=== PATIENT | female | born 1965 | race Caucasian/White ===

== ENCOUNTER 2022-04-24 10:15 | Outpatient (CLI) | payer OTHER, SELFPAY ==
--- NOTE | 2022-04-24 | BRBX_PTH ---
PATIENT: DEB GUILLEN LOC: [facility] U#:[id number] AGE/SX: 57/F ROOM: RE04/24/[address]: Dr. Nitin Alicea MD : 1965 BED: DIS: 04/24/2022 SPEC #: [id number] RECD: 04/24/22 12:41 STATUS: DESTIN [place] #: [id number] MARIA ANTONIA: 04/24/22 00:[address]: Nitin Alicea DEPT: SURGICAL PATHOLOGY RECD BY: Davin Martin ENTERED: 04/24/22 12:42 SP TYPE: BREAST BX OTHR DR: REECE John Tissues: Right breast, NOS Procedures: Surgery Specimen Level IV HEADER OPERATION: Right breast biopsy PRE-OP DIAGNOSIS: Right breast mass TISSUE SUBMITTED: Right breast tissue FIXATION TIME: 11 hours MICROSCOPIC DIAGNOSIS Right breast mass, core biopsy: Invasive lobular carcinoma, pleomorphic variant, nuclear grade 2-3/3 (1 cm in greatest length). See comment. NEY:alvin 04/25/2022 COMMENT The tumor shows marked chronic inflammatory cell infiltrates. Immunohistochemistry ([id number]) supports the above diagnosis. ER/NY/Pdp7cga studies are being performed on sections of tumor and the results from this study will be reported separately ([id number]). Case has been reviewed in consultation with Dr. Astorga who concurs with the above diagnosis. IDC:AM MICROSCOPIC DESCRIPTION Slides are reviewed. GROSS DESCRIPTION Received in fixative is one container labeled with the patient's name and designated right breast tissue. The specimen consists of multiple elongated fragments of hoffmann-yellow fibroadipose tissue that in aggregate measure 1.5 x 0.5 x 0.1 cm. The entire specimen is submitted in one cassette. / NEY:alvin 04/24/2022 TC:0 CPT: 75152
--- NOTE | 2022-04-24 | IMM_PTH ---
PATIENT: DEB GUILLEN LOC: [facility] U#:[id number] AGE/SX: 57/F ROOM: RE04/24/[address]: Dr. Nitin Alicea MD : 1965 BED: DIS: 04/24/2022 SPEC #: [id number] RECD: 04/25/22 13:48 STATUS: DESTIN REQ #: [id number] MARIA ANTONIA: 04/24/22 00:[address]: Nitin Alicea DEPT: IMMUNOHISTOCHEMISTRY RECD BY: Elyse Shook ENTERED: 04/25/22 13:50 SP TYPE: IMMUNO OTHR DR: REECE John Tissues: Right breast, NOS Procedures: CALPONIN-1 (add) CK5-6 (add) CK8 (add) E-CAD (add) HER2 SHAKEEL (add) KI-67 (add) P53 (add) WV (add) P40 (add) ER (initial) PHYSICIAN & INSTITUTION [address] [address] SPECIMEN INFORMATION: Tissue Source: Right breast Clinical Info: Right breast mass Specimen Number: [id number] CPT code: 29094, 20654 x6, 77450 x3 METHODOLOGY: Deparaffinized sections of prefer/formalin-fixed tissue or PAP/DQ stained slides are incubated with monoclonal/polyclonal antibodies/oligonucleotide probes. Localization is made via biotin free immunoperoxidase method. Appropriate controls are performed and reacted as expected. Results on target cell population are indicated in the following table: RESULTS: ANTIBODY / CLONE RESULT E-Cad (ECH-6) negative CK8 (52vzriI48) positive Calponin-1 (UA095Q) negative CK5-6 (D5 & 1684) negative P40 (BC28) negative P53 (DO-7) negative Ki-67 (30-9) positive, moderate (~50%) MORPHOMETRIC ANALYSIS ER (clone 6F11) >95%, strong intensity WV (clone 16/1E2) >95%, strong intensity Her-2Neu (clone CB11) 0 The prognostic test for HER2 is performed on formalin-fixed paraffin embedded tissue. A 3+ (positive) staining pattern is defined as intense, homogeneous, complete, circumferential membranous staining in >10% of contiguous tumor cells. A similar weak (2+) staining pattern is interpreted as equivocal. CODY follow-up testing is recommended for all equivocal cases. Positivity/negativity for ER/WV is reported if > or < 1% of the tumor cells are immuno- reactive, respectively. The ASCO/CAP criteria is used for scoring. Reference: Journal of Clinical Oncology, 2013; 31:4420-7769 & 2010; 16:9698-7796. Duration of fixation: 11 Hrs; Sample Adequate: Yes. These assays have not been validated on decalcified tissues. Results should be interpreted with caution given the likelihood of false negativity on decalcified specimens. These tests were developed and their performance characteristics determined by [facility]. They may not have been cleared or approved by the U.S. Food and Drug Administration. The FDA has determined that such clearance or approval is not necessary. The above immunohistochemical/dualISH markers are ordered and reviewed by the Pathologist. INTERPRETATION: Right breast, core biopsy: Invasive lobular carcinoma, pleomorphic variant, nuclear grade 2-3/3. Positive for estrogen receptors (favorable prognostic indicator). Positive for progesterone receptors (favorable prognostic indicator). Negative for overexpression of LKZ9vck. SJ:alvin 04/26/2022
== END 2022-04-24 23:59 | disposition home or self-care (01) ==
LOC: LABSPEC 10:16
PROVIDERS: Referring Provider Surgery; Visit Provider Surgery
DX: N63.10 Unspecified lump in the right breast, unspecified quadrant (principal)
CPT/HCPCS: 88305; 88341; 88342

== ENCOUNTER → 2022-05-09 | Outpatient (CLI) | payer OTHER, SELFPAY ==
--- NOTE | 2022-05-09 08:41 | MRI_ITS ---
STUDY: BILATERAL BREAST MR WITHOUT AND WITH CONTRAST REASON FOR EXAM: Female, 57 years old. Newly diagnosed right breast cancer. TECHNIQUE: Multi-sequence multi-echo imaging of both breasts was performed with a dedicated breast coil. T1-weighted and T2-weighted images were performed before the administration of contrast. T1-weighted images were also performed after the intravenous administration of 22ml of Clariscan contrast. COMPARISON: Bilateral mammogram dated April 17, 2022 and right breast ultrasound dated April 17, 2022. Ultrasound-guided biopsy images dated April 24, 2022. FINDINGS: RIGHT BREAST: The breast tissue is The breasts are almost entirely fatty. with minimal background enhancement. Irregular enhancing mass measuring 3 cm x 2.2 cm x 2.4 cm at the 9:00 position of the right breast corresponding to the mammographic and ultrasonographic findings. Postbiopsy changes noted. Two fatty replaced lymph nodes measuring 8 mm and 11 mm in diameter are present in the right axilla. LEFT BREAST: The breast tissue is The breasts are almost entirely fatty. with minimal background enhancement. There are no abnormal enhancing masses or areas of non-mass enhancement in the left breast. There are no enlarged or abnormal lymph nodes. There is no abnormality in the visualized regions of the chest or liver. MRI/Breast Bilateral W/O and W IMPRESSION: Irregular enhancing mass in the right breast corresponding to the comparison ultrasonographic and mammographic findings. No other abnormality. CATEGORY: BIRADS Category 6: Known Biopsy-Proven Malignancy - Appropriate Action Should Be Taken. A letter regarding these results will be sent to the patient by the facility within 30 days. Electronically Signed: Ramon Manzo, at 7:48 EDT ,
[2022-05-09 09:20] LABS: CREATININE FINGERSTICK < 0.9 mg/dL (0.55-1.02); EGFR FINGERSTICK > 60.0000 mL/min (>60)
== END | disposition home or self-care (01) ==
LOC: MRI 08:41
PROVIDERS: Referring Provider Surgery; Visit Provider Surgery
DX: C50.919 Malignant neoplasm of unspecified site of unspecified female breast (principal)
CPT/HCPCS: 77049; A9575; A4216; C8908

== ENCOUNTER 2022-05-15 07:52 | Day surgery (SDC) | payer OTHER, SELFPAY ==
--- NOTE | 2022-05-09 10:11 | EKG12_ITS ---
Test Reason : PRE-OP Blood Pressure : / mmHG Vent. Rate : 073 BPM Atrial Rate : 073 BPM P-R Int : 144 ms QRS Dur : 072 ms QT Int : 404 ms P-R-T Axes : 045 026 024 degrees QTc Int : 445 ms Normal sinus rhythm Normal ECG Confirmed by EDWARD VILLATORO, VILMA ([id number]), movie editor ELIEZER GUTIERREZ ([id number]) on 05/10/2022 11:05:24 AM Referred By: Nitin Alicea Confirmed By:VILMA LEON MD
[2022-05-09 12:03] LABS: Anion Gap 5 (5-15); BUN 17 mg/dL (7-18); BUN/Creat Ratio 23.8 RATIO (10-20); Calcium,Total 9.9 mg/dL (8.5-10.1); Chloride 105 mmol/L (98-107); Creatinine, Serum 0.71 mg/dL (0.55-1.02); EST Glomerular Filtration Rate 89 mL/min (>60); Est Glom Filt Rate - Afr Amer 108 mL/min (>60); Glucose 93 mg/dL (74-106); Sodium Level 140 mmol/L (136-145)
[2022-05-15] VITALS (10 sets, daily range): BP systolic 108–150; BP diastolic 56–90; PULSE 72–95; RESP 16–20; TEMP 36.2–36.7; O2SAT 88–96; BMI 40.4
--- NOTE | 2022-05-15 | AXNB_PTH ---
PATIENT: DEB GUILLEN [place] [facility] [place][id number] AGE/SX: 57/F ROOM: RE05/15/[address]: Dr. Nitin Alicea MD : 1965 BED: DIS: 05/15/2022 SPEC #: [id number] RECD: 05/15/22 14:35 STATUS: DESTIN ATKINSONEloisa #: [id number] MARIA ANTONIA: 05/15/22 00:[address]: Nitin Alicea DEPT: SURGICAL PATHOLOGY RECD BY: Elyse Shook ENTERED: 05/15/22 15:36 SP TYPE: AX NODE BX OTHR DR: REECE John Tissues: A - Axillary lymph node, NOS B - Right breast, NOS C - Right breast, NOS Procedures: Frozen Section (charge) Surgery Specimen Level IV Surgery Specimen Level V HEADER OPERATION: Stereotactic wire localization lumpectomy with sentinel lymph node biopsy PRE-OP DIAGNOSIS: Right breast lobular carcinoma TISSUE SUBMITTED: A - Right axillary sentinel lymph nodes, FS at 1434, B - Right breast mass, long stitch - inferior, short stitch - lateral, C - New inferior margin of right breast, stitch garcia new margin FROZEN SECTION DIAGNOSIS A. Right axillary sentinel lymph nodes, biopsy: Two out of two lymph nodes negative for carcinoma. AM:alvin 05/15/2022 MICROSCOPIC DIAGNOSIS A. Right axillary sentinel lymph nodes, biopsy: Two out of two lymph nodes, negative for carcinoma. B. Right breast mass, lumpectomy: Invasive lobular carcinoma, pleomorphic variant. One out of one intra-mammary lymph node, negative for carcinoma. See cancer synoptic report below. C. New inferior margin, biopsy: Chronic inflammation. No evidence of malignancy. AM:alvin 05/17/2022 COMMENT A & B. Immunohistochemistry ([id number]) supports the above diagnosis. INVASIVE BREAST CANCER SUMMARY: Procedure - excision with wire guidance Specimen: Type - partial breast Size ? 6 x 5 x 3 cm Laterality ? right breast Tumor: Site ? right breast Size ? 2.5 x 2.5 x 1.5 cm Histologic type - invasive lobular carcinoma, pleomorphic variant. Focality - single focus of carcinoma. Histologic Grade (Hallie grade): Glandular/tubular differentiation - score 3 Nuclear pleomorphism - score 3 Mitotic count ? score 1 Overall grade - 2 (score of 7) Ductal carcinoma in situ: Not present Lobular carcinoma in situ (LCIS): Not present Tumor extension: Skin ? not applicable Nipple - not applicable Skeletal muscle ? not present Margins: Tumor extends to inked inferior margin. Lymph nodes: Number of sentinel lymph nodes examined - 2 Total number of lymph nodes examined (sentinel and non-sentinel) - 3 No evidence of macrometastases, micrometastases or isolated tumor cells. See specimen A and [id number]. Note, one intramammary lymph node is present within the breast sections and is free of carcinoma. Treatment effect: Unknown Lymphvascular invasion: Not identified Additional pathologic findings: Chronic inflammation. Ancillary studies - previously performed on section of tumor ([id number] / [id number]). ER ? positive (>95%, strong intensity) IL - positive (>95%, strong intensity) Her2 fadi ? negative (0) Her2 by dual CODY - not performed Ki67 ? positive, moderate (~50%) Microcalcifications: Not identified Clinical history: Mass of right breast. PATHOLOGIC STAGE: T2 N0 Mx The above summary is in compliance with [employer] [place] Path[employer] (CAP) Cancer Protocols Checklist and [place] Joint Committee on Cancer (AJCC), Staging Manual, 8th Ed. Reference is made to the patient's previous right breast mass, core biopsy ([id number]) in which invasive lobular carcinoma, pleomorphic variant was identified. MICROSCOPIC DESCRIPTION Slides are reviewed. GROSS DESCRIPTION A - Received fresh for frozen section consultation labeled with the patient's name is a specimen designated right axillary sentinel lymph nodes. The specimen consists of two irregular fragments of hoffmann-yellow fibrofatty tissue that in aggregate measure 4 x 2 x 1 cm. Dissection reveals two nodules resembling lymph nodes ranging in size from 1 to 2 cm in greatest dimension. The nodules are submitted in their entirety for frozen section consultation as follows: 1 - one lymph node, 2 - one lymph node, bisected. / AM:alvin 05/15/2022 B - Received fresh for OR consultation labeled with the patient's name is a specimen designated right breast mass. The specimen consists of an oriented fragment of hoffmann-yellow fibrofatty tissue measuring 6 x 5 x 3 cm and weighing 34.5 gm. The specimen is differentially inked as follows: anterior - yellow, posterior - black, superior - blue, inferior - green, medial - red and lateral - orange. The specimen contains a guidewire. Serial sections reveal a firm, speculated white-hoffmann mass measuring 2.5 x 2.5 x 1.5 cm that extends to the inked inferior margin of excision. The gross impression of mass at inferior margin is conveyed to the surgeon intraoperatively. Wood Hacker sections are submitted as follows: 1 & 2 - inked perpendicular margins, 3-6 - tumor with inked inferior margin, 7-10 - car sales representative sections of uninvolved breast parenchyma adjacent to and away from tumor. Note, sections are submitted after additional fixation. / AM:alvin 05/16/2022 C - Received in fixative is one container labeled with the patient's name and designated new inferior margin. The specimen consists of an irregular fragment of yellow fatty tissue measuring 5.2 x 2.5 x 0.7 cm. One surface contains a suture and has been marked as the new margin. The surface is inked in black ink. Serial sections reveal yellow fatty cut surfaces. No mass lesion is identified. The specimen is submitted in its entirety in three cassettes after additional fixation. / AM:alvin 05/16/2022 TC:0 CPT: 01422 x2, 48704, 86952 ADDENDUM ADDENDUM ADDENDUM ADDENDUM ADDENDUM ADDENDUM ADDENDUM ADDENDUM 06/19/2022 09:58 ADDENDUM 06/19/2022 09:58 ADDENDUM 06/19/2022 09:58 ADDENDUM 06/19/2022 09:58 ADDENDUM 06/19/2022 09:58 An order for Oncotype testing was received from Dr. Bishop. This necessitated case review, block and slide selection by pathologist at [facility]. Breast Cancer Recurrence Score = 26 Results of the complete Oncotype testing ([employer] report) are viewable in EMR under: Reports - Pathology - Lab Pathology Report, Scanned.
--- NOTE | 2022-05-15 | IMM_PTH ---
PATIENT: DEB GUILLEN [place] [facility] [id number] AGE/SX: 57/F ROOM: RE05/15/[address]: Dr. Nitin Alicea MD : 1965 BED: DIS: 05/15/2022 SPEC #: [id number] RECD: 05/17/22 13:55 STATUS: DESTIN REQ #: [id number] MARIA ANTONIA: 05/15/22 00:[address]: Nitin Alicea DEPT: IMMUNOHISTOCHEMISTRY RECD BY: Elyse Shook ENTERED: 05/17/22 13:57 SP TYPE: IMMUNO OTHR DR: REECE John Tissues: A - Axillary lymph node, NOS B - Right breast, NOS Procedures: E-CAD (initial) CK7 (add) HER2 SHAKEEL (add) Pankeratin (initial) PHYSICIAN & INSTITUTION [place] [address] SPECIMEN INFORMATION: Tissue Source: A ? Right axillary sentinel lymph nodes, B ? Right breast mass Clinical Info: Right breast lobular carcinoma Specimen Number: [id number] A1, A2 & B5 CPT code: 37396 x2, 01209 x4 METHODOLOGY: Deparaffinized sections of prefer/formalin-fixed tissue or PAP/DQ stained slides are incubated with monoclonal/polyclonal antibodies/oligonucleotide probes. Localization is made via biotin free immunoperoxidase method. Appropriate controls are performed and reacted as expected. Results on target cell population are indicated in the following table: RESULTS: ANTIBODY / CLONE RESULT Block A1 AE1-3 (AE1/AE3/PCK26) negative CK7 (OV-TL12/30) negative Block A2 AE1-3 (AE1/AE3/PCK26) negative CK7 (OV-TL12/30) negative Block B5 E-Cad (ECH-6) negative Her-2neu (CB11) negative These tests were developed and their performance characteristics determined by [facility]. They may not have been cleared or approved by the U.S. Food and Drug Administration. The FDA has determined that such clearance or approval is not necessary. The above immunohistochemical/dualISH markers are ordered and reviewed by the Pathologist. INTERPRETATION: A. Right axillary sentinel lymph nodes, biopsy: Two out of two lymph nodes, negative for carcinoma. B. Right breast mass, lumpectomy: Invasive lobular carcinoma. AM:alvin 05/18/2022
[2022-05-15] MEDS: Lactated Ringers 1,000 ML 15 ML IV ×2 (08:00→14:45)
--- NOTE | 2022-05-15 08:30 | NM_ITS ---
PROCEDURE: NUCLEAR MEDICINE Injection [place] Node - RIGHT breast(s). REASON FOR EXAM: Female, 57 years old. Right breast cancer. TECHNIQUE: [place] node localization using radionuclide methods of the RIGHT breast(s) was performed following subcutaneous administration of 1.1 mCi of of sulfur colloid Tc-99m. FINDINGS: 1.1 mCi of technetium sulfur colloid was injected subcutaneously in 4 equal aliquots in the periareolar region. NM/Lymph Node Injection Only IMPRESSION: Subcutaneous injection of 1.1 mCi of technetium labeled sulfur colloid in 4 equal parts in the periareolar region. Electronically Signed: Leandro Camara MD at 10:54 EDT ,
--- NOTE | 2022-05-15 10:01 | BI_ITS ---
SURGICAL BREAST SPECIMEN RADIOGRAPH CLINICAL: Document presence of tissue clip marker in biopsy specimen. FINDINGS: Specimen shows presence of tissue clip marker. Electronically Signed: Leandro Camara MD at 15:07 EDT , BI/Breast Biopsy Specimen IMPRESSION: undefined
--- NOTE | 2022-05-15 13:06 | HP.PCM_ITS ---
History and Physical Date of Admission: 05/15/22 Intake Intake Visit Reasons:?F/U RT BIRADS 5 BIOPSY 04/24 Chief Complaint: right breast biopsy f/u Behavioral Psychologist Required: No Is patient in pain?: No Allergies No Known Allergies Allergy (Verified 05/01/22 08:01) Medications atorvastatin 20 mg tablet tablet PO 04/24/22 [History Confirmed 05/01/22] hydrochlorothiazide 25 mg tablet ea PO 04/24/22 [History Confirmed 05/01/22] indomethacin 25 mg capsule cap PO 04/24/22 [History Confirmed 05/01/22] PFSH Medical History? GERD (gastroesophageal reflux disease) Hyperlipidemia Surgical History? History of 2 sections History of hysterectomy History of right breast biopsy (~04/2022) Family History? Mother Cancer ?? ? ovarian HypertensionFather CVA (cerebral vascular accident)Brother Cancer ?? ? liver Bleeding disorder Social History? Smoking Status:? Never smoker HPI HPI HPI: Patient is a 49-year-old female here for follow-up.? She had breast biopsy which showed invasive lobular carcinoma.? She is here to discuss surgery and treatment. ROS General General: No weight change, appetite, fatigue, colon cancer, breast cancer or weakness HEENT HEENT: No difficulty swallowing, eye injury, eye surgery, swollen glands or hoarseness Breast Breast: Yes abnormal mammogram and abnormal US; No left breast lump, right breast lump, nipple discharge, breast pain or breast enlargement Musc Musculoskeletal: Yes gout; No back problems, arthritis, rheumatoid arthritis or joint pain Cardio Cardiovascular: No murmur, pacemaker, heart disease, atrial fibrillation, high blood pressure, heart attack, heart stent, palpitations, shortness of breat with exertion or chest pain Psych Psychiatric: No depression, anxiety or hearing voices Resp Respiratory: No shortness of breath, No sleep apnea, No cough, No COPD, No asth ma, No emphysema and No wheezing Gastro Gastrointestinal: No abdominal pain, No nausea or vomiting, No diarrhea, No constipation, No blood in stool, Yes acid reflux, No hemorrhoids, No ulcers, No gallbladder problem and No black,tarry stools Hernan Hematologic: No blood thinners, No blood disorders, No bleeding, No anemia and No blood clots Neuro Neurologic: No weakness Exam Const General: cooperative Orientation: alert and oriented x3 HENMT Head: normal to inspection Neck Neck: normal visual inspection and full ROM Chest Chest palpation & inspection: normal inspection of the chest Resp Effort & Inspection: normal respiratory effort Auscultation: clear to auscultation bilaterally Cardio Rate: regular rate Rhythm: regular rhythm GI Inspection: non-distended Palpation: soft and nontender Skin General: no rashes or lesions noted Neuro General: patient alert and patient oriented x3 Extrem General: full ROM Psych Appearance: grossly normal Mental Status: mental status grossly normal Assessment and Plan Assessment and Plan (1) Breast cancer: ?Status:?Acute ?Qualifiers: ?Breast location:?lower outer quadrant of breast??Estrogen receptor status:?positive??Laterality:?right??Patient sex:?female? Qualified Code(s):? C50.511 - Malignant neoplasm of lower-outer quadrant of right female breast; Z17.0 - Estrogen receptor positive status [ER+] ?Plan: The patient was found to have a invasive lobular carcinoma on biopsy.? Due to the fact that it is lobular I would like to get an MRI before surgery.? I then discussed doing a wire localized partial mastectomy with sentinel lymph node biopsy.? I discussed the procedure with her in detail.? I discussed the risks including not limited to bleeding, infection, nerve injury, lymphedema, need for further surgery or need for radiation or chemotherapy.? Patient understands the risks and is willing to proceed.? After MRI we will have her scheduled for surgery. Nitin Alicea MD Pager: [facility] [address] [place] [address], [address] [place] [address] Office: I have seen and reexamined the patient and there are no changes
[2022-05-15] MEDS: Cefazolin 2 GM in 0.9% Normal Saline 100 ML IV (13:28)
[2022-05-15] MEDS: Isosulfan Blue 1% 5 ML Vial (13:45)
[2022-05-15] MEDS: 0.9% Normal Saline (Pres. free 10 ML Vial (13:45)
[2022-05-15] MEDS: Bupivacaine 0.25% 30 ML Vial (13:53)
--- NOTE | 2022-05-15 15:15 | OP.PCM_ITS ---
Report of Operation Date of Procedure: 05/15/22 Pre-Operative Diagnosis: Breast cancer, invasive lobular of the lower outer rig ht breast Post-Operative Diagnosis: Same Surgery/Procedure Performed:: 1. Stereotactic guided wire localization 2. Right axillary sentinel lymph node biopsy 3. Right breast partial mastectomy. Specimen's removed: 1. Right axillary lymph nodes 2. Right partial mastectomy 3. New inferior margin Estimated Blood Loss (mL): 20 Description of Procedure: Patient was brought to the stereotactic table and placed into the stereotactic table and compressive views were obtained. The clip was localized and stereotactic views were obtained. The clip was then targeted and the breast was prepped and draped and then injected with local anesthetic. The wire was placed into the mass and deployed. Patient tolerated procedure well. Mammogram was obtained to confirm that it was within the mass. Next patient was taken the operating room and general anesthesia was used. The right breast was prepped and 5 cc of Lymphazurin was injected into the subareolar space as well as 5 cc of saline. 5-minute massage was performed. Next the right breast and axilla were prepped and draped in usual sterile fashion. An incision was made in the axilla and deepened to the axillary fascia which was incised. The blue and radioactive lymph node was identified. 2 nodes were removed. 10-second count was performed and there were no further radioactive or blue or palpable lymph nodes in the axilla. Lymph nodes were sent for pathology and frozen section showed they were both negative. The axilla was then packed. There is good hemostasis. Next the right breast was addressed. Superior to the wire an area of incision was marked and then injected with local anesthetic. Scalpel was used to make an incision and then the wire was brought into the incision. Electrocautery was used to dissect circumferentially around the mass. It was marked and then sent for mammogram and pathology. The margin inferiorly was closed and so a new permanent margin was taken inferiorly and marked and sent for pathology. The cavity was irrigated and suctioned dry and hemostasis was obtained using electrocautery. Next both incisions were closed with interrupted 3-0 Vicryl suture as well as running 4-0 Monocryl suture. Dermabond was placed over both incisions. Patient was then awoken and taken to PACU in stable condition tolerated the procedure well. Admit VTE Documentation VTE Mechan Device Prophylaxis: SCD's
--- NOTE | 2022-05-15 15:19 | DCINST_ITS ---
Discharge Instructions Procedure Breast Surgery Diet Discharge Diet: No restrictions Activity Discharge Activity: May Not Drive (for 2-3 days or while taking narcotic pain medications.) May shower in (days): 1 Lifting Restrictions: 15 lbs for 1 week Dressing / Incision Call your doctor if your incision/area has: Continuous Slow Oozing, Sudden Increased Bleeding, Increased Pain/ Swelling, Increased Redness, Foul Smelling Discharge and Swelling at the incision site Call your doctor if you observe: Fever of 101 or Higher Suture Line Care: Avoid Pulling/Pushing and Avoid Pinching/Bending Cleanse incision/area with: Soap & Water Additional Dressing/Incision Instructions:: May shower over the glue tomorrow. Wear tight supportive bra for support. Follow Up Care Please Follow Up With: Nitin Alicea MD When: Please call to schedule 2 week follow up appointment. [phone] Test Results: Test results from this visit will be discussed in further detail at your follow- up appointment, if applicable. Discharge Plan Admission Attending Provider: Nitin Alicea Primary Care Provider: Isabel Wilkins Discharge Orders/Prescriptions Prescriptions: New oxycodone 5 mg tablet 5 - 10 mg PO Q6H PRN (Reason: pain) 5 Days Qty: 30 0RF No Action indomethacin 25 mg capsule 25 mg PO TID PRN (Reason: GOUT) atorvastatin 20 mg tablet 20 mg PO QHS hydrochlorothiazide 25 mg tablet 25 mg PO DAILY Label Comments: TAKE ONE TABLET BY MOUTH DAILY ascorbic acid (vitamin C) [Vitamin C] 500 mg Tablet 500 mg PO DAILY zinc 50 mg Capsule 50 mg PO DAILY Probiotic 10 billion cell Capsule 10,000 mmu cells PO DAILY turmeric 400 mg Capsule 400 mg PO DAILY Glucosamine Chondroitin 550-30-1 mg Capsule 1 cap PO DAILY Referrals / Follow Up: Isabel Wilkins PA [Primary Care Provider] - Disposition Disposition (needs filled in before D/C Order can be placed): Home, Self Care
[2022-05-15] MEDS: Ipratropium/Albuterol Sulfate 3 ML AMPUL.NEB INHALATION (16:24)
[2022-05-15] MEDS: oxyCODONE 5 MG Tablet PO (16:55)
== END 2022-05-15 17:24 | disposition home or self-care (01) ==
LOC: SDC 07:52 → AC 07:53
PROVIDERS: Anesthesiology; Referring Provider Surgery; Visit Provider Surgery
PROC: (CPT 19301; principal; 2022-05-15 10:45)
DX: C50.511 Malignant neoplasm of lower-outer quadrant of right female breast (principal); K21.9 Gastro-esophageal reflux disease without esophagitis; E78.5 Hyperlipidemia, unspecified; I10 Essential (primary) hypertension; Z87.39 Personal history of other diseases of the musculoskeletal system and connective tissue
CPT/HCPCS: 19302; 38900; 00404; 19281; 36415; 38792; 76098; 80048; 87426; 88305; 88307; 88331; 88341; 88342; 93005; 94640; A9541; C9803; J7120; J2405; J3490; Q9968

== ENCOUNTER → 2022-05-30 | Outpatient (CLI) | payer OTHER, SELFPAY ==
--- NOTE | 2022-05-30 14:49 | RAD_ITS ---
INDICATION: BREAST CA EXAMINATION/TECHNIQUE: X-RAY - XR Chest 2 Views COMPARISON: None. FINDINGS: The lungs are clear. The cardiomediastinal silhouette is unremarkable. No pleural effusion or pneumothorax. No acute osseous abnormalities. RAD/Chest PA and Lateral IMPRESSION: No acute radiographic abnormalities. Electronically Signed: Bryce Valdez MD at 17:31 EST ,
== END | disposition home or self-care (01) ==
PROVIDERS: Referring Provider Internal Medicine Medical Oncology; Visit Provider Internal Medicine Medical Oncology
DX: C50.919 Malignant neoplasm of unspecified site of unspecified female breast (principal)
CPT/HCPCS: 71046

== ENCOUNTER 2022-06-28 10:53 | Day surgery (SDC) | payer OTHER, SELFPAY ==
[2022-06-28] VITALS (8 sets, daily range): BP systolic 106–139; BP diastolic 61–93; PULSE 70–84; RESP 16–18; TEMP 36.3–36.6; O2SAT 96–98; BMI 40.8
[2022-06-28] MEDS: Lactated Ringers 1,000 ML 15 ML IV (11:51)
--- NOTE | 2022-06-28 12:04 | HP.PCM_ITS ---
History and Physical Date of Admission: 06/28/22 Intake Vital Signs ? 06/27/2208:03 Height 5 ft 4 in Weight: 240 lb 4 oz BMI 41.2 BP 135/72 H Blood Pressure Location Rt brachial Position Sitting Respiration 17 Pulse 81 Pulse Source Monitor Temp 97.4 F L Temp Source Temporal Pulse Oximetry (%) 92 Oxygen Delivery Method room air Intake Visit Reasons:?PORT PLACEMENT Chief Complaint: port placement Allergies No Known Allergies Allergy (Verified 06/27/22 08:05) Medications atorvastatin 20 mg tablet 20 mg PO QHS 04/24/22 [History Confirmed 06/27/22] hydrochlorothiazide 25 mg tablet 25 mg PO DAILY 04/24/22 [History Confirmed 06/27/22] indomethacin 25 mg capsule 25 mg PO TID PRN GOUT 04/24/22 [History Confirmed 06/27/22] Lactobacillus acidophilus 10 billion cell capsule (Probiotic) 10,000 mmu cells PO DAILY 05/08/22 [History Confirmed 06/27/22] ascorbic acid (vitamin C) 500 mg tablet (Vitamin C) 500 mg PO DAILY 05/08/22 [History Confirmed 06/27/22] glucosamine sulf dipot chlr,msm,chond 550 mg-C 30 mg-waqar 1 mg capsule (Glucosamine Chondroitin) 1 cap PO DAILY 05/08/22 [History Confirmed 06/27/22] turmeric 400 mg capsule 400 mg PO DAILY 05/08/22 [History Confirmed 06/27/22] zinc 50 mg capsule 50 mg PO DAILY 05/08/22 [History Confirmed 06/27/22] PFSH Medical History? Back pain Cancer Gastric reflux GERD (gastroesophageal reflux disease) Gout High cholesterol History of edema Hyperlipidemia Hypertension Non-smoker Post-menopausal Wears glasses Surgical History? History of 2 sections History of hysterectomy History of lumpectomy of right breast History of right breast biopsy (~04/2022) History of right nephrectomy Family History? Mother Cancer ?? ? ovarian HypertensionFather CVA (cerebral vascular accident)Brother Cancer ?? ? liver Bleeding disorder Social History? Smoking Status:? Never smoker HPI HPI HPI: Patient had invasive lobular carcinoma of the right breast and is here for port discussion. ROS General General: Yes fatigue and breast cancer; No weight change, appetite, colon cancer or weakness HEENT HEENT: No difficulty swallowing, eye injury, eye surgery, swollen glands or hoarseness Endo Endocrine: No thyroid disease, diabetes mellitus, thyroid cancer, Hair loss, heat intolerance or cold intolerance Skin Skin: No rash or changing moles Breast Breast: No left breast lump, right breast lump, nipple discharge, breast pain, abnormal mammogram, abnormal US or breast enlargement Musc Musculoskeletal: Yes gout; No back problems, arthritis, rheumatoid arthritis or joint pain Cardio Cardiovascular: No murmur, pacemaker, heart disease, atrial fibrillation, high blood pressure, heart attack, heart stent, palpitations, shortness of breat with exertion or chest pain Psych Psychiatric: No depression, anxiety or hearing voices Resp Respiratory: No shortness of breath, No sleep apnea, No cough, No COPD, No asthma, No emphysema and No wheezing Gastro Gastrointestinal: No abdominal pain, No nausea or vomiting, No diarrhea, No constipation, No blood in stool, Yes acid reflux, No hemorrhoids, No ulcers, No gallbladder problem and No black,tarry stools Hernan Hematologic: No blood thinners, No blood disorders, No bleeding, No anemia and No blood clots Neuro Neurologic: No system reviewed and no additional complaints, except as documented, No as per HPI, No abnormal gait, No abnormal hearing, No abnormal movements, No abnormal speech, No behavioral changes, No burning sensations, No confusion, No convulsions, No disequilibrium, No dizziness, No localized weakness, No frequent falls, No headache(s), No lack of coordination, No loss of vision, No memory loss, No numbness, No other visual disturbances, No radicular pain, No restless legs, No sensory deficit, No syncope, No tingling, No tremor(s), No weakness and No other Exam Const General: cooperative Orientation: alert and oriented x3 HENMT Head: normal to inspection Neck Neck: normal visual inspection and full ROM Chest Chest palpation & inspection: normal inspection of the chest Resp Effort & Inspection: normal respiratory effort Auscultation: clear to auscultation bilaterally Cardio Rate: regular rate Rhythm: regular rhythm GI Inspection: non-distended Palpation: soft and nontender Skin General: no rashes or lesions noted Neuro General: patient alert and patient oriented x3 Extrem General: full ROM Psych Appearance: grossly normal Mental Status: mental status grossly normal Assessment and Plan Assessment and Plan (1) Breast cancer: ?Status:?Acute ?Qualifiers: ?Breast location:?lower outer quadrant of breast??Estrogen receptor status:?positive??Patient sex:?female ?Comment: Invasive Lobular carcinoma, Pleomorphic variant, Tumor size 2.5cm, tumor extends to inferior inked margin, re-excision margin negative, grade 2,? Lymph node 2 negative, ER/CO greater than 95% positive, Her2 negative, Ki67 50%. Pathologic staging pT2 pN0(sn). Prognostically stage IB. Oncotype DX was 26. Genetic testing for BRCA 1 & 2 were negative. Discussed local breast cancer management, Lumpectomy followed by Radiation therapy, Oncotype DX suggesting benefit from chemotherapy. Pt wants to do chemotherapy in addition to hormonal therapy as adjuvant. (2) Encounter for insertion of venous access port: ?Status:?Acute Plan Patient has breast cancer on the right and requires port for chemotherapy.? I discussed left chest placement utilizing left IJ.? I discussed the procedure in detail as well as the risks including bleeding, infection, pneumothorax or line infection.? Patient understands the risks and is willing to proceed with left chest port placement tomorrow. Nitin Alicea MD Pager: [facility] [address] [place] [address], [address] [place] [address] Office: I have examined the patient and the H&P has been reviewed. There are no clinical changes since date of exam.
[2022-06-28] MEDS: Cefazolin 2 GM in 0.9% Normal Saline 100 ML IV (12:10)
[2022-06-28] MEDS: Bupiv/Epi 0.5% Mpf 30 ML Vial (12:28)
--- NOTE | 2022-06-28 13:09 | RAD_ITS ---
STUDY: X-RAY CHEST REASON FOR EXAM: Female, 57 years old. Line placement -- in pacu TECHNIQUE: Single AP portable view of the chest. COMPARISON: Comparison is made with prior study 05/30/2022. FINDINGS: A left-sided Port-A-Cath has been placed. The tip is in the right atrium. EKG electrodes are seen. Surgical clips are seen in the right axillary region. Mild increased markings at the right lung base suggestive of a right basilar atelectasis. There is no demonstrated pleural abnormality. Normal size heart. Normal mediastinum and to. Normal visualized pulmonary arteries. Normal visualized aortic arch and descending thoracic aorta. Normal visualized thoracic spine. Normal visualized ribs, clavicles, and shoulders. There is no demonstrated abnormality of the visualized soft tissue structures of the upper abdomen. RAD/CXR for Line Placement IMPRESSION: The tip of the left portacatheter is in the right atrium. Electronically Signed: Leandro Camara MD at 13:59 EST ,
--- NOTE | 2022-06-28 13:17 | PCM.OPRPT ---
Report of Operation Date of Procedure: 06/28/22 Pre-Operative Diagnosis: Need for vascular access for chemotherapy Post-Operative Diagnosis: Same Surgery/Procedure Performed:: Ultrasound and fluoroscopy guided left chest port placement utilizing left IJ Description of Procedure: After obtaining informed consent patient was brought back to the operating room MAC anesthesia was induced and the left chest and neck were prepped in normal sterile fashion. Ultrasound was used to evaluate both IJs and the left IJ was selected. Next, using a needle, the left IJ was accessed and a guidewire was passed on into the superior vena cava under fluoroscopy guidance. A small incision was made over the puncture site and the dilator introducer was placed over the guidewire. Next this was capped and the pocket was made for the port. 1% lidocaine with epinephrine was injected in the proposed port site. An incision was made with scalpel. Electrocautery was used to make a pocket under the skin and subcutaneous tissue. Hemostasis was obtained. Next, the catheter was tunneled up to the neck incision site and placed through the introducer. The peel-away introducer was removed and the position of the catheter was confirmed on fluoroscopy. Next, the catheter was trimmed and attached to the port with the locking device. Interrupted 2-0 Vicryl sutures were used to anchor the port to the chest wall and then the port was placed inside the pocket. The pocket was then flushed with saline and the port irrigated with saline. There was good blood return and the port flushed easily. Next, heparin was injected into the port. The skin was closed with subcutaneous interrupted 3-0 Vicryl sutures. A single 3-0 Vicryl sutures placed under the skin at the neck incision site. Steri-Strips were placed as well as op sites. Patient tolerated procedure well, was taken to PACU in stable condition. Chest x-ray will be obtained. Grafts/Implants Used: 8 [employer] PowerPort Admit VTE Documentation VTE Mechan Device Prophylaxis: SCD's
--- NOTE | 2022-06-28 13:18 | DCINST_ITS ---
Discharge Instructions Procedure Port-A-Cath Diet Discharge Diet: Light diet - advance as tolerated (Pain medication may cause nausea. You should typically eat light foods as you take your pain medication.) Activity Discharge Activity: Return to Normal Activity and May Shower (with your bandage in place in 1-2 days after surgery. DO NOT SHOWER WHEN YOUR PORT IS ACCESSED.) Dressing / Incision Call your doctor if your incision/area has: Continuous Slow Oozing, Sudden Increased Bleeding, Increased Pain/ Swelling, Increased Redness and Foul Smelling Discharge Call your doctor if you observe: Fever of 101 or Higher Remove Dressing in: 2 days Cleanse incision/area with: Soap & Water Follow Up Care Please Follow Up With: Nitin Alicea MD When: as needed [phone] Test Results: Test results from this visit will be discussed in further detail at your follow- up appointment, if applicable. Discharge Plan Admission Attending Provider: Nitin Alicea Primary Care Provider: Isabel Wilkins Instructions Additional Instructions / Restrictions: Ibuprofen and Tylenol for pain. Ice pack as needed. Discharge Orders/Prescriptions Prescriptions: No Action indomethacin 25 mg capsule 25 mg PO TID PRN (Reason: GOUT) atorvastatin 20 mg tablet 20 mg PO QHS hydrochlorothiazide 25 mg tablet 25 mg PO DAILY Label Comments: TAKE ONE TABLET BY MOUTH DAILY ascorbic acid (vitamin C) [Vitamin C] 500 mg Tablet 500 mg PO DAILY zinc 50 mg Capsule 50 mg PO DAILY Probiotic 10 billion cell Capsule 10,000 mmu cells PO DAILY turmeric 400 mg Capsule 400 mg PO DAILY Glucosamine Chondroitin 550-30-1 mg Capsule 1 cap PO DAILY Referrals / Follow Up: Isabel Wilkins PA [Primary Care Provider] - Disposition Disposition (needs filled in before D/C Order can be placed): Home, Self Care
--- NOTE | 2022-06-28 14:11 | SUR.PHASEII ---
Dr Alicea notified of CXR read -line in place & dressing half way saturated with serosang drainage, no active bleeding or drainage currently. Orders to change dressing before d/c home.
== END 2022-06-28 14:40 | disposition home or self-care (01) ==
LOC: SDC 10:54 → AC 10:54
PROVIDERS: Referring Provider Surgery; Visit Provider Surgery
PROC: (CPT 36561; principal; 2022-06-28 12:15)
DX: Z45.2 Encounter for adjustment and management of vascular access device (principal); C50.511 Malignant neoplasm of lower-outer quadrant of right female breast; Z17.0 Estrogen receptor positive status [ER+]; I10 Essential (primary) hypertension; E78.00 Pure hypercholesterolemia, unspecified; M10.9 Gout, unspecified; Z78.0 Asymptomatic menopausal state
CPT/HCPCS: 36561; 00532; 71045; 77001; J7120; C1788

== ENCOUNTER → 2022-11-08 | Outpatient (CLI) | payer OTHER, SELFPAY ==
--- NOTE | 2022-11-08 08:20 | BD_ITS ---
STUDY: DUAL ENERGY X-RAY ABSORPTIOMETRY / DXA REASON FOR EXAM: Female, 57 years old. Screen CANCER TECHNIQUE: Bone Mineral Density (BMD) measurements of lumbar spine and bilateral hips were obtained. COMPARISON: None. FINDINGS: Lumbar Spine (L1-L4): g/cm2 (1.160) / T-score (1.0) / Z-score (2.3) Findings are suggestive of normal bone density with a low fracture risk. Left Femur Total: g/cm2 (1.091) / T-score (1.2) / Z-score (2.1) Left Femoral Neck: g/cm2 (0.830) / T-score (-0.2) / Z-score (1.0) Right Femur Total: g/cm2 (1.052) / T-score (0.9) / Z-score (1.8) Right Femoral Neck: g/cm2 (0.931) / T-score (0.7) / Z-score (2.0) BD/Dexa Bone Density Study IMPRESSION: The patient is considered normal as outlined below according to World Raj Organization (WHO) criteria with a low fracture risk. Reference Information: The T-score is the number of standard deviations above or below the standard which is normal for young adults at their peak bone mineral density. The World Health Organization (WHO) interprets the T-scores as follows: Above -1 Normal bone density Between -1 and -2.5 Osteopenia Equal to / or below -2.5 Osteoporosis As a practical clinical guideline, osteopenia may be graded as follows: Mild -1 through -1.5 Moderate -1.6 through -2.0 Severe -2.1 through -2.4 The Z-score is the number of standard deviations above or below age-matched controls. A Z-score of less than -1.5 would be considered abnormal. References: 1. NIH Osteoporosis and Related Bone Diseases www osteo.org 2. International Society for Clinical Densitometry www iscd.org 3. National Osteoporosis Foundation www nof.org Electronically Signed: Leandro Camara MD at 15:38 EDT ,
== END | disposition home or self-care (01) ==
LOC: OPBD 08:12
PROVIDERS: Referring Provider Internal Medicine Medical Oncology; Visit Provider Internal Medicine Medical Oncology
DX: Z13.820 Encounter for screening for osteoporosis (principal); C50.919 Malignant neoplasm of unspecified site of unspecified female breast
CPT/HCPCS: 77080

== ENCOUNTER → 2024-05-08 | Outpatient (CLI) | payer OTHER, SELFPAY ==
--- NOTE | 2024-05-08 | BRBX_PTH ---
PATHOLOGY RESULTS PATIENT: DEB GUILLEN [facility] U[id number] AGE/SX: 59/F ROOM: RE05/08/[address]: Dr. Nitin Alicea MD : 1965 BED: DIS: 05/08/2024 SPEC #: [id number] RECD: 05/08/24 15:11 STATUS: DESTIN [place] #: [id number] MARIA ANTONIA: 05/08/24 00:[address]: Nitin Alicea DEPT: SURGICAL PATHOLOGY RECD BY: Patti Lucas ENTERED: 05/09/24 07:51 SP TYPE: BREAST BX OTHR DR: REECE John Tissues: Right breast, NOS Procedures: Surgery Specimen Level IV HEADER OPERATION: Ultrasound guided needle core biopsy right breast PRE-OP DIAGNOSIS: Abnormal mammogram, previous partial mastectomy right breast for CA 05/15/22 TISSUE SUBMITTED: Right breast biopsy Ischemic Time: 1 minute Fixation Time: 31 hours MICROSCOPIC DIAGNOSIS Right breast, ultrasound needle core biopsy: Fragments of benign breast tissue with extensive dense fibrosis and focal foreign body giant cell reaction. Negative for atypia or malignancy. See comment. 05/12/2024 COMMENT Immunohistochemistry ([id number]) supports the above diagnosis. Please make reference to previous specimen [id number], right breast mass, lumpectomy with diagnosis of invasive lobular carcinoma, pleomorphic variant. Clinical correlation and appropriate follow-up are necessary. MICROSCOPIC DESCRIPTION Slides are reviewed. GROSS DESCRIPTION Received in fixative is one container labeled with the patient's name and designated Right breast biopsy. The specimen consists of multiple cores of light hoffmann-white soft tissue measuring in aggregate 2.0 x 0.2 x <0.1cm. The specimen is submitted in its entirety in one cassette. BODebbie 05/09/2024 TC:5 CPT:63060
--- NOTE | 2024-05-08 | IMM_PTH ---
PATHOLOGY RESULTS PATIENT: DEB GUILLEN LOC: [facility] U#:[id number] AGE/SX: 59/F ROOM: RE05/08/[address]: Dr. Nitin Alicea MD : 1965 BED: DIS: 05/08/2024 SPEC #: [id number] RECD: 05/12/24 10:24 STATUS: DESTIN REQ #: [id number] MARIA ANTONIA: 05/08/24 00:[address]: Nitin Alicea DEPT: IMMUNOHISTOCHEMISTRY RECD BY: Tim Swenson ENTERED: 05/12/24 10:25 SP TYPE: IMMUNO OTHR DR: REECE John Tissues: Right breast, NOS Procedures: Calponin-1(initial) CK8 (add) E-CAD (add) P40 (add) PHYSICIAN & INSTITUTION [place] [id number] SPECIMEN INFORMATION: Tissue Source: Right breast biopsy Clinical Info: Abnormal mammogram, previous partial mastectomy right breast cancer Specimen Number: [id number] CPT code: 28425,96980f3 METHODOLOGY: Deparaffinized sections of prefer/formalin-fixed tissue or PAP/DQ stained slides are incubated with monoclonal/polyclonal antibodies/oligonucleotide probes. Localization is made via biotin free immunoperoxidase method. Appropriate controls are performed and reacted as expected. Results on target cell population are indicated in the following table: RESULTS: ANTIBODY / CLONE RESULT Calponin-1 (DH328V) positive (myoepithelial cells) P40 (BC28) positive (myoepithelial cells) E-Cad (ECH-6) positive CK8 (15ixeaW96) positive These tests were developed and their performance characteristics determined by [facility]. They may not have been cleared or approved by the U.S. Food and Drug Administration. The FDA has determined that such clearance or approval is not necessary. The above immunohistochemical/dualISH markers are ordered and reviewed by the Pathologist. INTERPRETATION: Right breast, core biopsy: Negative for malignancy. 05/13/2024
== END | disposition home or self-care (01) ==
LOC: LABSPEC 15:24
PROVIDERS: Referring Provider Surgery; Visit Provider Surgery
DX: R92.8 Other abnormal and inconclusive findings on diagnostic imaging of breast (principal)
CPT/HCPCS: 88305; 88341; 88342

== ENCOUNTER → 2025-05-08 | Outpatient (CLI) | payer OTHER, SELFPAY ==
--- NOTE | 2025-05-08 10:00 | BI_ITS ---
EXAM: SCRN MAMM (CAD)W/ELMER BILAT DATE: 05/08/2025 CLINICAL HISTORY: F, Age 60 y/o , ANNUAL SCREENING, H/O BREAST CANCER TECHNIQUE: Procedure Code: [id number] Modality: MG Procedure: SCRN MAMM (CAD)W/ELMER BILAT COMPARISON: Prior exam(s) were compared FINDINGS: TISSUE DENSITY: There are scattered areas of fibroglandular density. Bilateral Breast Mammographic Findings: No suspicious masses, calcifications or other abnormalities are identified. Postsurgical changes in the right breast. BI/SCRN MAMM (CAD)W/ELMER BILAT IMPRESSION: No mammographic evidence of malignancy in either breast. OVERALL FINAL ASSESSMENT BI-RADS 2: BENIGN RECOMMENDATION: Routine annual follow-up in 1 Year Additional Recommendation none A letter with findings and recommendations will be mailed to the patient. Reading Location: [id number]
== END | disposition home or self-care (01) ==
LOC: OPBI 09:40
PROVIDERS: Referring Provider Student in an Organized Health Care Education/Training Program; Visit Provider Student in an Organized Health Care Education/Training Program
DX: Z12.31 Encounter for screening mammogram for malignant neoplasm of breast (principal)
CPT/HCPCS: 77063; 77067